=== PATIENT | female | born 1955 | race Caucasian/White ===

== ENCOUNTER 2020-05-01 17:28 | Outpatient (CLI) | payer BC, SELFPAY ==
--- NOTE | ~2020-05-01 | MM_ITS ---
EXAMINATION: MM screening [facility] w [facility] HISTORY: Screening TECHNIQUE: Craniocaudal and mediolateral oblique 3-D tomosynthesis images were obtained and synthetic 2-D images were generated. CAD analysis was submitted and interpreted. COMPARISON: Comparison to multiple prior studies sequentially, with oldest reviewed study dated 06/03. BREAST PARENCHYMAL COMPOSITION: There are scattered areas of fibroglandular density. FINDINGS: There is no evidence of suspicious mass, calcification, or architectural distortion to sugg est malignancy in either breast. There has been no suspicious interval change. IMPRESSION: 1. No mammographic evidence of malignancy. 2. Recommend routine screening mammography in one year. BI-RADS Category 1: Negative Reviewed, dictated and finalized at location A. [facility] [employer]
== END 2020-05-01 17:29 | disposition home or self-care (01) ==
LOC: ANHIMG 17:30
PROVIDERS: PCP Family Medicine; Visit Provider Obstetrics & Gynecology Gynecology
DX: Z12.31 Encounter for screening mammogram for malignant neoplasm of breast (principal)
CPT/HCPCS: 77063; 77067

== ENCOUNTER 2020-08-29 17:11 | Outpatient (CLI) | payer BC, SELFPAY | END 2020-08-29 17:12 | disposition home or self-care (01) | LOC: ANHCOVIDVC 17:11 | PROVIDERS: PCP Family Medicine | DX: Z23 Encounter for immunization (principal) | CPT/HCPCS: 0001A; 91300 ==

== ENCOUNTER → 2020-09-13 06:43 | Outpatient (CLI) | payer BC, SELFPAY ==
[2020-09-13 16:56] LABS: SARS-CoV-2 RNA PCR Positive
== END ==
PROVIDERS: PCP Family Medicine; Visit Provider Family Medicine
DX: U07.1 COVID-19 (principal); J20.9 Acute bronchitis, unspecified
CPT/HCPCS: C9803; U0003; U0005

== ENCOUNTER 2021-07-02 17:30 | Outpatient (CLI) | payer BC, SELFPAY ==
--- NOTE | ~2021-07-02 | MM_ITS ---
EXAMINATION: MM screening [facility] w nas HISTORY: Screening mammogram TECHNIQUE: Craniocaudal and mediolateral oblique 3-D tomosynthesis images were obtained and synthetic 2-D images were generated. CAD analysis was submitted and interpreted. COMPARISON: 05/01/2020, 05/06/2019, 03/18/2019 BREAST PARENCHYMAL COMPOSITION: There are scattered areas of fibroglandular density. FINDINGS: There is no evidence of suspicious mass, calcification, or architectural distortion to sugg est malignancy in either breast. There has been no suspicious interval change. IMPRESSION: 1. No mammographic evidence of malignancy. 2. Recommend routine screening mammography in one year. BI-RADS Category 1: Negative Reviewed, dictated and finalized at location A. [employer]
== END 2021-07-02 17:31 | disposition home or self-care (01) ==
LOC: ANHIMG 17:32
PROVIDERS: PCP Family Medicine; Visit Provider Obstetrics & Gynecology Gynecology
DX: Z12.31 Encounter for screening mammogram for malignant neoplasm of breast (principal)
CPT/HCPCS: 77063; 77067

== ENCOUNTER 2022-02-08 09:37 | Outpatient (CLI) | payer BC, SELFPAY ==
--- NOTE | ~2022-02-08 | DEXA_ITS ---
Bone Density Report Name: NICOLASA TOVAR Age: 66 Sex: Female Ethnicity: White Date of : 1955 Indication: postmenopausal; screening for osteoporosis; hysterectomy; Referring Provider: RADHA WATSON Study: Bone densitometry was performed. Exam Date: February 08, 2022 Accession number: [id number] Bone Density: Region BMD T-score Z-score Classification AP Spine(L1-L4) 1.046 0.0 1.7 Normal Femoral Neck (Left) 0.530 -2.9 -1.4 Osteoporosis Total Hip (Left) 0.739 -1.7 -0.5 Osteopenia Femoral Neck (Right) 0.558 -2.6 -1.2 Osteoporosis Total Hip (Right) 0.734 -1.7 -0.5 Osteopenia Total Hip Mean 0.737 -1.7 -0.5 Osteopenia World Health Organization criteria for BMD impression classify patients as: Normal (T-score at or above -1.0), Osteopenia (T-score between -1.0 and -2.5), or Osteoporosis (T-score at or below -2.5). 10-year Fracture Risk: FRAX not reported because: Some T-score for Spine Total or Hip Total or Femoral Neck at or below -2.5 Treated for osteoporosis Clinical Information Provided by Patient: Is being treated for osteoporosis Has used the following medications: Vitamin D Has the following medical conditions: Hysterectomy Patient maximum height was 62 Menopause Age: 47 No regular weight bearing exercise Drinks caffeinated beverages Onset of menses at age 15 Number of children 2 Impression: The patient has osteoporosis, based on the Left Femoral Neck T-score. Discussion: It is important to ask patients whether they are taking their medications and to encourage continued and appropriate compliance with their osteoporosis therapies to reduce fracture risk. It is also important to review their risk factors and encourage appropriate calcium and vitamin D intakes, exercise, fall prevention and other lifestyle measures. Follow-Up: Consider a repeat BMD and Vertebral Fracture Assessment (VFA) exam in 2 years or sooner if medically necessary, to reassess this patient's status. Reported by: [facility] on 02/08/2022 9:54:00 AM. Reviewed, dictated and finalized at location ARolando ROBERTSON
== END 2022-02-08 09:38 | disposition home or self-care (01) ==
PROVIDERS: PCP Family Medicine; Visit Provider Nurse Practitioner Family
DX: Z78.0 Asymptomatic menopausal state (principal); M81.0 Age-related osteoporosis without current pathological fracture
CPT/HCPCS: 77080

== ENCOUNTER 2022-06-21 06:39 | Outpatient (CLI) | payer BC, SELFPAY ==
[2022-06-21 07:47] LABS: Basophils Absolute Auto 0.1 K/mm3 (0.0-0.1); Basophils Percent Auto 1.3 % (0.2-1.2); Eosinophils Absolute Auto 0.4 K/mm3 (0-0.3); Eosinophils Percent Auto 5.2 % (0-4.4); Hematocrit 42.7 % (37.0-47.0); Hemoglobin 14.7 g/dL (12.0-15.0); Immature Granulocyte Absolute 0.04 K/mm3 (0.00-0.031); Immature Granulocyte Percent A 0.6 % (0-0.5); Lymphocytes Absolute Auto 2.63 K/mm3 (0.9-3.2); Lymphocytes Percent Auto 36.9 % (18.3-44.2); Mean Corpuscular HGB Conc 34.4 g/dl (32-36); Mean Corpuscular Volume 84.2 fl (80-100); Mean Platelet Volume 9.5 fl (7.4-10.4); Monocytes Absolute Auto 0.5 K/mm3 (0.1-0.6); Monocytes Percent Auto 6.5 % (2.6-8.5); Neutrophils Absolute Auto 3.5 K/mm3 (1.3-6.7); Neutrophils Percent Auto 49.5 % (45.5-73.1); Platelet Count Result 303 k/mm3 (150-375); Red Blood Count 5.07 M/mm3 (4.2-5.4); White Blood Count 7.1 K/mm3 (4.5-10.0)
[2022-06-21 08:12] LABS: Alanine Aminotransferase 32 U/L (6-35); Alkaline Phosphatase 108 U/L (38-126); Anion Gap 7 mmol/L (8-16); Aspartate Amino Transferase 31 U/L (14-36); Bilirubin,Total 0.6 mg/dL (0.2-1.3); Blood Urea Nitrogen 11 mg/dL (7-17); Carbon Dioxide 27 mmol/L (22-30); Chloride 108 mmol/L (98-107); Cholesterol 199 mg/dL (0-200); Estimated Glomerular Filt Rate > 60; Glucose 100 mg/dL (65-110); HDL Direct 47 mg/dL; Magnesium 2.3 mg/dL (1.6-2.3); Sodium 142 mmol/L (137-145); Triglycerides 87 mg/dL (<150)
[2022-06-21 08:23] LABS: LDL Cholesterol Direct 111 mg/dL
[2022-06-21 08:47] LABS: Appearance Urine Clear (Clear); Bilirubin Urine Negative (Negative); Blood Urine Negative (Negative); Color Urine Yellow (Yellow); Glucose Urine UA Negative (Negative); Ketones Urine Negative (Negative); Leukocyte Esterase Ur Negative LEU/UL (NEGATIVE); Nitrate Urine Negative (Negative); Protein Urine Negative (Negative); Specific Grav Ur 1.015 (1.001-1.035); Urobilinogen Urine 0.2 mg/dL (<2.0); pH Urine 7.5 (5.0-9.0)
[2022-06-21 09:20] LABS: Add Urine Microscopic? NO
[2022-06-21 09:24] LABS: Folic Acid > 20.0 ng/mL (2.76->20)
[2022-06-26 11:23] LABS: Vitamin D 1,25 (OH)2 Total 54 pg/mL (18-72); Vitamin D2 1,25 (OH)2 <8 pg/mL; Vitamin D3 1,25 (OH)2 54 pg/mL
== END 2022-06-21 06:40 | disposition home or self-care (01) ==
PROVIDERS: PCP Family Medicine; Visit Provider Family Medicine
DX: Z00.00 Encounter for general adult medical examination without abnormal findings (principal); E78.2 Mixed hyperlipidemia; I47.1 Supraventricular tachycardia; D51.9 Vitamin B12 deficiency anemia, unspecified; E55.9 Vitamin D deficiency, unspecified; I10 Essential (primary) hypertension
CPT/HCPCS: 36415; 80053; 80061; 81003; 82607; 82652; 82746; 83735; 84443; 85025

== ENCOUNTER 2022-12-13 08:57 | Outpatient (CLI) | payer OTHER, SELFPAY ==
--- NOTE | ~2022-12-13 | MM_ITS ---
EXAMINATION: MM screening [facility] w nas HISTORY: Screening mammogram TECHNIQUE: Craniocaudal and mediolateral oblique 3-D tomosynthesis images were obtained and synthetic 2-D images were generated. CAD analysis was submitted and interpreted. COMPARISON: July 02, 2021, May 01, 2020 bilateral screening mammogram examinations BREAST PARENCHYMAL COMPOSITION: There are scattered areas of fibroglandular density. FINDINGS: There is no evidence of suspicious mass, calcification, or architectural distortion to sugg est malignancy in either breast. There has been no suspicious interval change. IMPRESSION: 1. No mammographic evidence of malignancy. 2. Recommend routine screening mammography in one year. BI-RADS Category 1: Negative Reviewed, dictated and finalized at location A.
== END 2022-12-13 08:58 | disposition home or self-care (01) ==
PROVIDERS: PCP Family Medicine; Visit Provider Nurse Practitioner
DX: Z12.31 Encounter for screening mammogram for malignant neoplasm of breast (principal)
CPT/HCPCS: 77063; 77067

== ENCOUNTER 2023-01-05 00:58 | Day surgery (SDC) | payer OTHER, SELFPAY ==
[2022-12-23 13:10] VITALS: BMI 34.7
[2023-01-05 06:15] VITALS: BP 142/92; PULSE 79; RESP 16; TEMP 35.8; O2SAT 98
[2023-01-05] MEDS: LACTATED RINGERS 1,000 ML 150 ML IV CONT (06:18)
--- NOTE | 2023-01-05 07:21 | PM.HPGS ---
History of Present Illness History of Present Illness Consent: Risks, benefits, and alternatives have been discussed and questions answered. Patient agrees to proceed with procedure. Chief complaint: neoplasm screening Narrative: Elham Brannon is a 67 year old female Stents for screening colonoscopy. Patient has a distant history of adenomatous colon polyp removed from the colon. Patient reports her current weight appetite and bowel movements are normal. She denies abdominal pain. She has had no bleeding. Patient presents today for neoplasia screening. Review of Systems Review of Systems: Review of systems noncontributory. [facility] Past Medical History Medical History (Updated 01/05/23 @ 07:22 by Colton Henderson MD) Acute bronchitis Acute non-recurrent maxillary sinusitis Anxiety BMI 36.0-36.9,adult Breast cancer screening by mammogram normal mammogram 12/13/2022. COVID (~05/21/22) Second episode, did not take Paxlovid. COVID-19 (09/08/20) COVID + 05/23/22 COVID antibody test markedly positive at greater than 150 on 07/01/2021 Encounter for wellness examination in adult Exposure to COVID-19 virus Muscle spasm Obesity (BMI 30-39.9) Vitamin B12 deficiency anemia (07/01/21) Level normal at 814 with folic acid greater than 20 with hemoglobin 14.7 on 06/21/2022. Vitamin D deficiency, unspecified Level normal at 39 on 07/01/2021. Family History Family History (Updated 09/21/18 @ 08:17 by DOCTOR UNKNOWN) Father Cerebrovascular accident Grandparent Cerebrovascular accident Family history of Parkinson's disease Sibling Family history of lung cancer, Onset Age: 38 Family history of congestive heart failure, Onset Age: 53 Mother Family history of congestive heart failure, Onset Age: 53 Social History Social History (Updated 07/14/22 @ 16:00 by Dana Porter MA) Years smoked: 10 Smoking status: Former smoker Tobacco type: cigarettes Substance use: never Substance use type: does not use Lack of Transportation: No Lack of Food: Never True Current Housing: I Have Housing Concerned About Future Housing: No Difficulty Paying Gas/Electric Bills: No Difficulty Paying for Meds: No Currently Unemployed: No Education: High School Diploma/GED Difficulty w/ Childcare or Family Care: No Living arrangements: other Additional living arrangements comments: With sp Meds Home Medications and Allergies Home Medications Medication Instructions Recorded Confirmed Type fluticasone propionate 50 1 spray intranasal BID PRN 06/13/19 01/05/23 History mcg/actuation nasal Allergic Symptoms spray,suspension (Flonase Allergy Relief) cholecalciferol (vitamin D3) 125 5,000 unit PO DAILY 07/11/21 01/05/23 History mcg (5,000 unit) capsule cyanocobalamin (vitamin B-12) 1,000 mcg PO DAILY 07/11/21 01/05/23 History 1,000 mcg tablet magnesium oxide 250 mg PO BID PRN Constipation 01/08/22 01/05/23 History potassium chloride 10 mEq 10 meq PO DAILY 01/08/22 01/05/23 History capsule,extended release metoprolol succinate 50 mg 50 mg PO BID #60 tabs 05/23/22 01/05/23 Rx tablet,extended release 24 hr hydrochlorothiazide 12.5 mg capsule 12.5 mg PO DAILY #90 caps 06/18/22 01/05/23 Rx apixaban 5 mg tablet (Eliquis) 5 mg PO BID PRN Afib 07/14/22 01/05/23 History Allergies Allergy/AdvReac Type Severity Reaction Status Date / Time cefdinir Allergy Unknown Swelling Verified 01/05/23 06:10 Vital Signs Vital Signs - 24 hr 01/05/23 06:15 Temperature 96.5 F L Pulse Rate 79 Respiratory Rate 16 Blood Pressure 142/92 H Pulse Oximetry 98 Oxygen Delivery Room Air Exam Narrative: Physical exam reveals patient to be alert. Vital signs stable. HEENT exam is unremarkable. Patient is anicteric. Lungs are clear to auscultation and percussion. Heart is without murmur or extra sounds. Abdomen bowel sounds are present soft
--- NOTE | 2023-01-05 07:27 | WPDANESEPPF ---
Anes - Initial Pre Proc Eval Procedure: Operation Date: 01/05/23 07:30 Proposed Procedures p Screening Colonoscopy - Colton Henderson MD Date/Time: 01/05/23 07:27 Surgeon: Colton Henderson MD Pre Op Diagnosis: neoplasm screening Patient Data Age: 67 Gender: F Height: 1.57 m Weight: 84.5 kg Last Vital Signs Temp 96.5 F L 01/05/23 06:15 Pulse 79 01/05/23 06:15 Resp 16 01/05/23 06:15 BP 142/92 H 01/05/23 06:15 Pulse Ox 98 01/05/23 06:15 O2 Del Method Room Air 01/05/23 06:15 Allergies Allergy/AdvReac Type Severity Reaction Status Date / Time cefdinir Allergy Unknown Swelling Verified 01/05/23 06:10 Home Medications Medication Instructions Recorded Confirmed Type fluticasone propionate 50 1 spray intranasal BID PRN 06/13/19 01/05/23 History mcg/actuation nasal Allergic Symptoms spray,suspension (Flonase Allergy Relief) cholecalciferol (vitamin D3) 125 5,000 unit PO DAILY 07/11/21 01/05/23 History mcg (5,000 unit) capsule cyanocobalamin (vitamin B-12) 1,000 mcg PO DAILY 07/11/21 01/05/23 History 1,000 mcg tablet magnesium oxide 250 mg PO BID PRN Constipation 01/08/22 01/05/23 History potassium chloride 10 mEq 10 meq PO DAILY 01/08/22 01/05/23 History capsule,extended release metoprolol succinate 50 mg 50 mg PO BID #60 tabs 05/23/22 01/05/23 Rx tablet,extended release 24 hr hydrochlorothiazide 12.5 mg capsule 12.5 mg PO DAILY #90 caps 06/18/22 01/05/23 Rx apixaban 5 mg tablet (Eliquis) 5 mg PO BID PRN Afib 07/14/22 01/05/23 History Patient hx anesthesia problems: none Family hx anesthesia problems: none Results Review: All pre-operative results and documents have been reviewed as part of the pre-operative evaluation. [facility] Past Medical History Medical History (Updated 01/05/23 @ 07:22 by Colton Henderson MD) Acute bronchitis Acute non-recurrent maxillary sinusitis Anxiety BMI 36.0-36.9,adult Breast cancer screening by mammogram normal mammogram 12/13/2022. COVID (~05/21/22) Second episode, did not take Paxlovid. COVID-19 (09/08/20) COVID + 05/23/22 COVID antibody test markedly positive at greater than 150 on 07/01/2021 Encounter for wellness examination in adult Exposure to COVID-19 virus Muscle spasm Obesity (BMI 30-39.9) Vitamin B12 deficiency anemia (07/01/21) Level normal at 814 with folic acid greater than 20 with hemoglobin 14.7 on 06/21/2022. Vitamin D deficiency, unspecified Level normal at 39 on 07/01/2021. Family History Family History (Updated 09/21/18 @ 08:17 by DOCTOR UNKNOWN) Father Cerebrovascular accident Grandparent Cerebrovascular accident Family history of Parkinson's disease Sibling Family history of lung cancer, Onset Age: 38 Family history of congestive heart failure, Onset Age: 53 Mother Family history of congestive heart failure, Onset Age: 53 Social History Social History (Updated 07/14/22 @ 16:00 by Dana Porter MA) Years smoked: 10 Smoking status: Former smoker Tobacco type: cigarettes Substance use: never Substance use type: does not use Lack of Transportation: No Lack of Food: Never True Current Housing: I Have Housing Concerned About Future Housing: No Difficulty Paying Gas/Electric Bills: No Difficulty Paying for Meds: No Currently Unemployed: No Education: High School Diploma/GED Difficulty w/ Childcare or Family Care: No Living arrangements: other Additional living arrangements comments: With hedy Garcia Final PreProcedure Day of Procedure 01/05/23 07:27 Patient weight: obese Heart: regular rate and rhythm Lungs: clear to auscultation Airway: Mallampati scale class II Neurological: alert and oriented ASA classification: III Anesthetic plan: proceed Anesthesia type and monitoring: general GIVS and standard monitoring Results Review: All pre-operative results and documents have been reviewed as part o
[2023-01-05] MEDS: SIMETHICONE ORAL SUSPENSION 20 MG/0.3 ML 30 ML BOTTLE 0.6 ML IRRIGATION (07:40)
[2023-01-05 07:50] VITALS: BP 138/73; PULSE 70; RESP 19; O2SAT 97
[2023-01-05 08:00] VITALS: BP 128/75; PULSE 64; RESP 23; O2SAT 98
[2023-01-05 08:10] VITALS: BP 122/68; PULSE 61; RESP 21; O2SAT 99
== END 2023-01-05 08:18 | disposition home or self-care (01) ==
PROVIDERS: PCP Family Medicine; Visit Provider Internal Medicine Gastroenterology
PROC: 0DJD8ZZ Inspection of Lower Intestinal Tract, Via Natural or Artificial Opening Endoscopic (ICD-10-PCS; CPT 45378; principal; 2023-01-05 07:30)
DX: Z12.11 Encounter for screening for malignant neoplasm of colon (principal); K63.5 Polyp of colon; K57.30 Diverticulosis of large intestine without perforation or abscess without bleeding; K64.8 Other hemorrhoids; F41.9 Anxiety disorder, unspecified; E53.8 Deficiency of other specified B group vitamins; E55.9 Vitamin D deficiency, unspecified; Z82.3 Family history of stroke; Z87.891 Personal history of nicotine dependence; Z79.01 Long term (current) use of anticoagulants; E66.9 Obesity, unspecified; Z68.34 Body mass index [BMI] 34.0-34.9, adult
CPT/HCPCS: 45380; 88305; J2704; J7120

== ENCOUNTER → 2023-03-26 09:34 | Outpatient (CLI) | payer OTHER, SELFPAY ==
--- NOTE | ~2023-03-26 | XR_ITS ---
EXAMINATION: XR chest 2V DATE: 03/26/2023 09:48 INDICATION: Chronic cough. TECHNIQUE: Frontal and lateral views of the chest were obtained on 3 radiographs. COMPARISON: Chest 2 views 02/11/2018, chest CT 02/11/2018 FINDINGS: Calcified pulmonary nodules are consistent with old granulomatous disease. No pleural effus ion or pneumothorax. The heart size is normal. IMPRESSION: 1. No acute cardiopulmonary disease. Reviewed, dictated and finalized at location E.
== END ==
PROVIDERS: PCP Family Medicine; Visit Provider Family Medicine
DX: R05.3 Chronic cough (principal)
CPT/HCPCS: 71046

== ENCOUNTER 2023-04-21 12:17 | Outpatient (CLI) | payer OTHER, SELFPAY ==
--- NOTE | 2023-04-21 16:20 | WPDPFTINT ---
PFT Procedure Performed PFT Procedure Performed Spirometry with Pre/Post Bronchodilator Plethysmography (Lung Vol) Diffusing Cap (DLCO) Flow Vol Loop PFT Interpretation This is a pulmonary function test with pre and post-bronchodilator spirometry, plethysmography and diffusing capacity. The test was performed and results interpreted in accordance with the 2019 and 2005 ATS/ERS Task Force guidelines respectively using the Global Lung Function Initiative-2012 reference equations. Patient demonstrated good effort and cooperation. Reproducibility criteria were met. The quality of the pre bronchodilator spirometry maneuver was Grade A and post bronchodilator spirometry maneuver was Grade A. Findings: Spirometry: The contour the inspiratory and expiratory flow tracing are normal. The pre bronchodilator FVC is 2.32 L, 83% predicted. The pre bronchodilator FEV1 is 1.86 L, 85% predicted. The pre bronchodilator FEV1: FVC ratio is 80%. The post bronchodilator FVC is 2.32 L, representing no change. The post bronchodilator FEV1 is 1.95 L, representing a 5% increase. The post bronchodilator FEV1: FVC ratio is 84%. Plethysmography: The total lung capacity is 3.54 L, 75% predicted. The functional residual capacity is 1.22 L, 46% predicted. The residual volume is 1.05 L, 53% predicted. Diffusing capacity: The diffusing capacity unadjusted for hemoglobin and carboxyhemoglobin is 13.4, 66% predicted. The diffusing capacity adjusted for alveolar volume is 3.92, 88% predicted. Impression: There is a mild restrictive ventilatory abnormality with a normal FEV1. The spirometry is normal without evidence of an obstructive abnormality. There is no significant improvement after inhaling a single dose of albuterol. The diffusing capacity unadjusted for hemoglobin and carboxyhemoglobin is mildly decreased and normalizes when adjusted for alveolar volume. There are no prior studies for comparison
== END 2023-04-21 12:18 | disposition home or self-care (01) ==
LOC: ANHPFT 12:18
PROVIDERS: PCP Family Medicine; Visit Provider Family Medicine
DX: R05.3 Chronic cough (principal); R94.2 Abnormal results of pulmonary function studies
CPT/HCPCS: 94060; 94726; 94729

== ENCOUNTER 2023-10-30 11:04 | Emergency (ER) | payer OTHER, SELFPAY ==
--- NOTE | ~2023-10-30 | XR_ITS ---
XR chest 2V 10/30/2023 12:12 Indication: Cough. Epigastric pain. Procedure: AP and lateral views of the chest Comparison: 08/17/2008 Findings: Shallow inspiration with crowding of the pulmonary vessels. No focal air space disease, pul monary edema, pleural effusion or suspected pneumothorax. There are scattered calcified granulomas in both lungs. No acute osseous abnormality. Impression: 1: No acute cardiopulmonary disease. Reviewed, dictated and finalized at location B. Impression: 1: No acute cardiopulmonary disease.
--- NOTE | ~2023-10-30 | CT_ITS ---
EXAMINATION: CT abdomen pelvis w con DATE: 10/30/2023 11:59 INDICATION: Right upper quadrant abdominal pain. TECHNIQUE: Computed tomography (CT) of the abdomen and pelvis was performed with 100 mL Omnipaque 350 intravenous contrast. Automated exposure control and iterative reconstruction technique were employe d. The dose-length product was 955.70 mGy-cm. COMPARISON: None. FINDINGS: The visualized portions of the lung bases demonstrate mild atelectasis. Calcified pulmonary nodules are consistent with old granulomatous disease. No pleural effusion. The heart size is normal . No pericardial effusion. The liver and spleen are normal. There are gallstones in the gallbladder, which is distended. Gallbladder wall thickening is noted. There is fat stranding around the gallbladd er. The pancreas, adrenal glands, and kidneys are normal. There is diverticulosis of the colon withou t evidence of diverticulitis. There are no dilated loops of bowel. The appendix is normal. There is c alcified atherosclerosis of the aorta and many of the other arteries. There are no pathologically enl arged lymph nodes. There is trace perihepatic ascites. IMPRESSION: 1. Acute cholecystitis. Reviewed, dictated and finalized at location A. IMPRESSION: 1. Acute cholecystitis.
[2023-10-30 11:06] VITALS: BP 124/61; PULSE 67; RESP 18; TEMP 36.4; O2SAT 99
--- NOTE | 2023-10-30 11:26 | ED.ABDPAIN ---
HPI - Abdominal Pain General Chief Complaint: Abdominal Pain Stated Complaint: right abdominal pain Time Seen by Provider: 10/30/23 11:14 Source: patient Mode of arrival: ambulatory Limitations: no limitations History of Present Illness HPI narrative: Elham is a 67-year-old female patient presenting to the ER today with complaints of right upper quadrant abdominal pain with pain radiating into her shoulder that started yesterday. States that the pain did improve overnight however this morning the pain started back again. She currently rates her pain a 9/10. Does have associated nausea without vomiting or diarrhea. Last bowel movement was this morning and normal for the patient. She has reported some chills without fever body aches. States pain is worse with movement and breathing. Denies any chest pain associated. Related Data Home Medications Medication Instructions Recorded Confirmed fluticasone propionate 50 1 spray intranasal BID PRN 06/13/19 07/27/23 mcg/actuation nasal Allergic Symptoms spray,suspension (Flonase Allergy Relief) cholecalciferol (vitamin D3) 125 5,000 unit PO DAILY 07/11/21 07/27/23 mcg (5,000 unit) capsule cyanocobalamin (vitamin B-12) 1,000 mcg PO DAILY 07/11/21 07/27/23 1,000 mcg tablet potassium chloride 10 mEq 10 meq PO DAILY 01/08/22 07/27/23 capsule,extended release apixaban 5 mg tablet (Eliquis) 5 mg PO BID PRN Afib 07/14/22 07/27/23 cetirizine 10 mg tablet (Zyrtec) 10 mg PO DAILY PRN 03/26/23 07/27/23 Allergies Allergy/AdvReac Type Severity Reaction Status Date / Time cefdinir Allergy Unknown Swelling Verified 01/05/23 06:10 Review of Systems Review of Systems: Pertinent positives per HPI. Patient denies any fever, chills, rash, headache, visual changes, dizziness, cough, runny nose, sore throat, chest pain, palpitations, nausea, vomiting, diarrhea, constipation, or any urinary issues. [facility] Past Medical History Medical History (Updated 10/30/23 @ 13:22 by Shahbaz Hua APRN) Acute bronchitis Acute non-recurrent maxillary sinusitis Anxiety BMI 36.0-36.9,adult Breast cancer screening by mammogram normal mammogram 12/13/2022. Chronic cough (~01/2023) Chest x-ray 03/26/2023 was unremarkable with old granulomatous disease with calcified pulmonary nodules unchanged. PFT on 04/21/2023 with mild restrictive disease, no obstructive airway disease. COVID (~05/21/22) Second episode, did not take Paxlovid. COVID-19 (09/08/20) COVID + 05/23/22 COVID antibody test markedly positive at greater than 150 on 07/01/2021 Encounter for wellness examination in adult Exposure to COVID-19 virus History of colon polyps Muscle spasm Obesity (BMI 30-39.9) Vitamin B12 deficiency anemia (07/01/21) Level normal at 814 with folic acid greater than 20 with hemoglobin 14.7 on 06/21/2022. Level normal at 1010 with hemoglobin 15.4 on 07/25/2023. Vitamin D deficiency, unspecified Level normal at 39 on 07/01/2021. Family History Family History (Updated 09/21/18 @ 08:17 by DOCTOR UNKNOWN) Father Cerebrovascular accident Grandparent Cerebrovascular accident Family history of Parkinson's disease Sibling Family history of lung cancer, Onset Age: 38 Family history of congestive heart failure, Onset Age: 53 Mother Family history of congestive heart failure, Onset Age: 53 Social History Social History Years smoked: 10 Smoking status: Former smoker Tobacco type: cigarettes Alcohol intake: never Substance use: never Substance use type: does not use Lack of Transportation: No Lack of Food: Never True Current Housing: I Have Housing Concerned About Future Housing: No Difficulty Paying Gas/Electric Bills: No Difficulty Paying for Meds: No Currently Unemployed: No Education: High School Diploma/GED Difficulty w/ Childcare or Family Care: No Living arra
--- NOTE | 2023-10-30 11:28 | ECG_ITS ---
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 Measurements Intervals [place] Rate: 65 P: 33 WI: 155 QRS: 40 QRSD: 130 T: 7 QT: 419 QTc: 438 Interpretive Statements SINUS RHYTHM RIGHT BUNDLE BRANCH BLOCK [120+ ms QRS DURATION, UPRIGHT V1, 40+ ms S IN I/aVL/V4/V5/V6] ABNORMAL ECG No previous ECG available for comparison Electronically Signed On 10-31-2023 07:48:08 CDT by Tristin Rojas M.D.
[2023-10-30 11:29] LABS: Basophils Absolute Auto 0.1 K/mm3 (0.0-0.1); Basophils Percent Auto 0.4 % (0.2-1.2); Eosinophils Absolute Auto 0.1 K/mm3 (0-0.3); Eosinophils Percent Auto 0.4 % (0-4.4); Hemoglobin 16.1 g/dL (12.0-15.0); Immature Granulocyte Absolute 0.08 K/mm3 (0.00-0.031); Immature Granulocyte Percent A 0.5 % (0-0.5); Lymphocytes Absolute Auto 1.77 K/mm3 (0.9-3.2); Lymphocytes Percent Auto 10.7 % (18.3-44.2); Mean Corpuscular HGB Conc 33.5 g/dl (32-36); Mean Corpuscular Hemoglobin 28.8 pg (26-34); Mean Corpuscular Volume 85.9 fl (80-100); Mean Platelet Volume 9.1 fl (7.4-10.4); Monocytes Absolute Auto 0.9 K/mm3 (0.1-0.6); Monocytes Percent Auto 5.2 % (2.6-8.5); Neutrophils Absolute Auto 13.7 K/mm3 (1.3-6.7); Neutrophils Percent Auto 82.8 % (45.5-73.1); Platelet Count Result 369 k/mm3 (150-375); Red Blood Count 5.59 M/mm3 (4.2-5.4); Red Cell Distribution Width 12.9 % (11.5-14.5); White Blood Count 16.5 K/mm3 (4.5-10.0)
[2023-10-30] MEDS: ONDANSETRON INJ 4 MG/2 ML VIAL IV PUSH (11:34)
[2023-10-30] MEDS: SODIUM CHLORIDE 0.9% IV 1,000 ML 999 ML IV CONT (11:34)
[2023-10-30] MEDS: MORPHINE SULFATE (*CRX) 4 MG/ML INJ IV PUSH (11:34)
[2023-10-30 11:41] LABS: Alanine Aminotransferase 26 U/L (6-35); Albumin Level 4.5 g/dL (3.5-5.1); Alkaline Phosphatase 108 U/L (38-126); Anion Gap 4 mmol/L (4-12); Aspartate Amino Transferase 26 U/L (14-36); Bilirubin,Total 1.6 mg/dL (0.2-1.3); Blood Urea Nitrogen 15 mg/dL (7-17); Calcium 9.5 mg/dL (8.4-10.2); Carbon Dioxide 28 mmol/L (22-30); Chloride 105 mmol/L (98-107); Estimated CRCL calculation 69 ml/min; Estimated Glomerular Filt Rate > 60; Glucose 148 mg/dL (65-110); Lipase 51 U/L (23-300); Potassium 3.9 mmol/L (3.4-5.0); Sodium 137 mmol/L (137-145)
--- NOTE | 2023-10-30 11:52 | PC.NURSE ---
Pt taken to ct at this time
[2023-10-30 11:55] LABS: Appearance Urine Cloudy (Clear); Bacteria Urine Rare /hpf; Bilirubin Urine Negative (Negative); Blood Urine Negative (Negative); Color Urine Yellow (Yellow); Glucose Urine UA Negative (Negative); Ketones Urine 1+ mg/dL (Negative); Leukocyte Esterase Ur 1+ LEU/UL (Negative); Nitrate Urine Negative (Negative); Non Pathogenic Casts 0-2; Protein Urine Negative (Negative); RBC Urine 0-2 /hpf (0-2); Specific Grav Ur 1.023 (1.001-1.035); Squamous Epithelial Cell Urine Few /hpf (Few)
[2023-10-30 12:01] LABS: Add Urine Microscopic? YES
--- NOTE | 2023-10-30 12:09 | PC.NURSE ---
Pt returned to room 19 at this time
[2023-10-30 12:34] VITALS: PULSE 97; RESP 19; O2SAT 95
[2023-10-30 12:48] LABS: Troponin I < 0.012 ng/mL (0.000-0.034)
[2023-10-30 13:30] VITALS: BP 150/82; PULSE 94; RESP 18; O2SAT 96
--- NOTE | 2023-10-30 14:05 | PC.NURSE ---
No blood cultures needed per edp
[2023-10-30] MEDS: metroNIDAZOLE 500 MG/ISO 100ML 500 MG/100 ML BAG 100 MG IVPB (14:11)
[2023-10-30 14:38] VITALS: BP 130/72; PULSE 95; RESP 18; O2SAT 95
--- NOTE | 2023-10-30 14:49 | PM.CNGS ---
Assessment and Plan Assessment and plan (1) Acute cholecystitis: Code(s): K81.0 - Acute cholecystitis Status: Acute Assessment and Plan: Long discussion with patient and regarding treatment of acute cholecystitis with antibiotics and interval cholecystectomy, the patient would like to go with p.o. analgesia and antibiotics given her pain is much improved, the patient will follow up with me next week to set up interval cholecystectomy, stay on low-fat diet for now History of Present Illness Consult details Consult date: 10/30/23 Reason for consult: abdominal pain Requesting physician: Shahbaz Hua APRN Narrative: The patient is a 67-year-old female presenting to the emergency department complaining of severe epigastric, right upper quadrant abdominal pain. The patient reports she has symptoms for the last week or so that have progressively worsened. She reports associate anorexia, nausea, bloating. The patient also reports some difficulty deep breathing secondary to pain. The patient reports pain radiating to her right shoulder and back. The patient reports that she has had the symptoms in the past, however not this severe. Upon evaluation in the emergency room department, the patient reports that her pain is much improved after some narcotic pain medication. Review of Systems Review of Systems: All systems reviewed & are unremarkable except as noted in HPI and below PMFSH Past Medical History Medical History Acute bronchitis Acute non-recurrent maxillary sinusitis Anxiety BMI 36.0-36.9,adult Breast cancer screening by mammogram normal mammogram 12/13/2022. Chronic cough (~01/2023) Chest x-ray 03/26/2023 was unremarkable with old granulomatous disease with calcified pulmonary nodules unchanged. PFT on 04/21/2023 with mild restrictive disease, no obstructive airway disease. COVID (~05/21/22) Second episode, did not take Paxlovid. COVID-19 (09/08/20) COVID + 05/23/22 COVID antibody test markedly positive at greater than 150 on 07/01/2021 Encounter for wellness examination in adult Exposure to COVID-19 virus History of colon polyps Muscle spasm Obesity (BMI 30-39.9) Vitamin B12 deficiency anemia (07/01/21) Level normal at 814 with folic acid greater than 20 with hemoglobin 14.7 on 06/21/2022. Level normal at 1010 with hemoglobin 15.4 on 07/25/2023. Vitamin D deficiency, unspecified Level normal at 39 on 07/01/2021. Family History Family History Father Cerebrovascular accident Grandparent Cerebrovascular accident Family history of Parkinson's disease Sibling Family history of lung cancer, Onset Age: 38 Family history of congestive heart failure, Onset Age: 53 Mother Family history of congestive heart failure, Onset Age: 53 Social History Social History Years smoked: 10 Smoking status: Former smoker Tobacco type: cigarettes Alcohol intake: never Substance use: never Substance use type: does not use Lack of Transportation: No Lack of Food: Never True Current Housing: I Have Housing Concerned About Future Housing: No Difficulty Paying Gas/Electric Bills: No Difficulty Paying for Meds: No Currently Unemployed: No Education: High School Diploma/GED Difficulty w/ Childcare or Family Care: No Living arrangements: other Additional living arrangements comments: With sp Meds Home Medications and Allergies Home Medications Medication Instructions Recorded Confirmed Type fluticasone propionate 50 1 spray intranasal BID PRN 06/13/19 07/27/23 History mcg/actuation nasal Allergic Symptoms spray,suspension (Flonase Allergy Relief) cholecalciferol (vitamin D3) 125 5,000 unit PO DAILY 07/11/21 07/27/23 History mcg (5,000 unit) capsule cyano
[2023-10-30] MEDS: levoFLOXacin 750 MG/D5W 150 ML 750 MG/150 ML BAG 100 MG IVPB (15:13)
[2023-10-30 16:10] VITALS: BP 139/70; PULSE 93; RESP 20; O2SAT 98
== END 2023-10-30 16:54 | disposition home or self-care (01) ==
PROVIDERS: Emergency Medicine; Emergency Provider Nurse Practitioner Family; PCP Family Medicine
DX: K81.0 Acute cholecystitis (principal); N39.0 Urinary tract infection, site not specified
CPT/HCPCS: 36415; 71046; 74177; 80053; 81001; 83690; 84484; 85025; 87086; 87088; 93005; 96361; 96365; 96367; 96375; 99284; J1836; J1956; J2270; J2405; J7030; Q9967

== ENCOUNTER 2023-11-04 00:21 | Day surgery (SDC) | payer OTHER, SELFPAY ==
[2023-11-03 16:59] VITALS: BMI 34.4
--- NOTE | 2023-11-03 17:25 | PC.NURSE ---
Report to the Outpatient Waiting Room, entrance under the green pavilion located off [facility], at 1130 on 11-04-23. Planned Procedure Time: 1330. Time changes happen often and if your time is changed the preop area will call you the afternoon before. - You and your visitor will be asked to self-screen and do not enter if you have any COVID symptoms. - A mask is optional within the hospital at this time. Patients may have clear liquids (water, carbonated beverages, clear teas, apple juice) until 3 hours prior to surgery with a maximum of 20 ounces. 1030 - No food from midnight until time of surgery - Infants may have breast milk until 4 hours before surgery, formula 6 hours prior to surgery. - Children will be allowed to drink immediately following surgery. If applicable, please bring a bottle or sippy cup to assist with drinking. Juice, water, soda, and popsicles are readily available. For infants on formula, please bring formula the day of surgery. Pacifiers are allowed. Take the following medications with a SIP of water the morning of surgery: metoprolol, Ringoes if needed, zofran if needed DO NOT STOP ANY OF YOUR OTHER PRESCRIPTION MEDICATIONS PRIOR TO SURGERY ?EXCEPT THE FOLLOWING Medications to discontinue per physician: vitamins and supplements Date to take last dose: 11-03-23 Please no make-up, nail dominican, hairspray, perfume, deodorant, or body powder the day of surgery. No jewelry (including any body piercings) or valuables the day of surgery, leave them at home. Please take a shower or bath the night before, or the morning of, surgery with an antibacterial soap. Wear comfortable, loose fitting clothing. Children are encouraged to wear pajamas. - Jewelry must be removed prior to entering the operating room. Rings and piercings that are not removed may be cut off. - The hospital will not accept responsibility for valuables. - Please leave all valuables, including medications, at home the day of surgery. If you are going home after surgery, a licensed yard truck driver must drive you home. - NO public transportation without another adult if you receive anesthesia. - We recommend that an adult stay with you for 24 hours following discharge. - We also recommend that you do not drive, make important decision, drink alcoholic beverages, or take any drugs that were not prescribed by your health care provider for at least 24 hours after your discharge time. For Pediatric surgeries, we recommend two adults accompany the child home. Follow any additional instructions given to you from your surgeon. If you or anyone in your household have experienced Covid symptoms in the past week, please notify your surgeon or the nurse liaison at the phone number below for possible testing. Telephone instructions given to Rae Brannon and asked if any additional questions and then verbalized understanding. Patient advised to call surgeon office or pre surgery nurse liaison [phone] if any additional questions.
[2023-11-04] VITALS (9 sets, daily range): BP systolic 116–156; BP diastolic 73–95; PULSE 65–88; RESP 12–17; TEMP 36.2–36.6; O2SAT 96–100
--- NOTE | 2023-11-04 11:55 | WPDHPUPDATE1 ---
History and Physical Update Update Date/Time: 11/04/23 11:55 History and Physical has been reviewed, including an updated exam of the patient. There are NO changes in the patient's condition. Risks, benefits, and alternatives have been discussed and questions answered. Patient agrees to proceed with procedure.
[2023-11-04] MEDS: LACTATED RINGERS 1,000 ML 30 ML IV CONT ×2 (12:00→14:42)
[2023-11-04] MEDS: KETOROLAC 15 MG/ML VIAL (*BKC) IV PUSH (12:45)
[2023-11-04] MEDS: ACETAMINOPHEN 500 MG TABLET 1000 MG PO (12:45)
[2023-11-04 12:52] LABS: Amylase 61 U/L (30-110)
--- NOTE | 2023-11-04 13:14 | WPDANESEPPF ---
Anes - Initial Pre Proc Eval Procedure: Operation Date: 11/04/23 13:30 Proposed Procedures p Laparoscopic Cholecystectomy - Sabra Penny MD Date/Time: 11/04/23 13:14 Surgeon: Sabra Penny MD Pre Op Diagnosis: acute cholecystitis Patient Data Age: 67 Gender: F Height: 1.57 m Weight: 85.28 kg Allergies Allergy/AdvReac Type Severity Reaction Status Date / Time cefdinir Allergy Intermediate Hives Verified 11/03/23 16:50 Home Medications Medication Instructions Recorded Confirmed Type fluticasone propionate 50 1 spray intranasal BID PRN 06/13/19 11/04/23 History mcg/actuation nasal Allergic Symptoms spray,suspension (Flonase Allergy Relief) cholecalciferol (vitamin D3) 125 5,000 unit PO DAILY 07/11/21 11/04/23 History mcg (5,000 unit) capsule cyanocobalamin (vitamin B-12) 1,000 mcg PO DAILY 07/11/21 11/04/23 History 1,000 mcg tablet potassium chloride 10 mEq 10 meq PO DAILY 01/08/22 11/04/23 History capsule,extended release albuterol sulfate 90 mcg/actuation 2 inh inhalation QID PRN shortness 03/26/23 11/04/23 Rx aerosol inhaler (Ventolin HFA) of breath or wheezing #8.5 grams cetirizine 10 mg tablet (Zyrtec) 10 mg PO DAILY PRN seasonal 03/26/23 11/04/23 History allergies hydrochlorothiazide 12.5 mg capsule 12.5 mg PO DAILY #90 caps 05/06/23 11/04/23 Rx metoprolol succinate 50 mg 50 mg PO BID #60 tabs 09/01/23 11/04/23 Rx tablet,extended release 24 hr hydrocodone 7.5 mg-acetaminophen 1 tablet PO Q6H PRN pain 3 days 10/30/23 11/04/23 Rx 325 mg tablet #10 tabs levofloxacin 750 mg tablet 750 mg PO DAILY 7 days #7 tabs 10/30/23 11/04/23 Rx metronidazole 500 mg tablet 500 mg PO Q8H 7 days #21 tabs 10/30/23 11/04/23 Rx ondansetron 4 mg disintegrating 4 mg PO Q6H PRN nausea and 10/30/23 11/04/23 Rx tablet vomiting 3 days #12 tabs hyoscyamine sulfate 0.125 mg 0.125 mg sublingual QID PRN 11/03/23 11/03/23 History sublingual tablet (Levsin/SL) Abdominal Pain Laboratory Tests 11/04/23 12:33 Amylase 61 U/L (30-110) Patient hx anesthesia problems: none Family hx anesthesia problems: none Results Review: All pre-operative results and documents have been reviewed as part of the pre-operative evaluation. [facility] Past Medical History Medical History Acute bronchitis Acute non-recurrent maxillary sinusitis Anxiety BMI 36.0-36.9,adult Breast cancer screening by mammogram normal mammogram 12/13/2022. Chronic cough (~01/2023) Chest x-ray 03/26/2023 was unremarkable with old granulomatous disease with calcified pulmonary nodules unchanged. PFT on 04/21/2023 with mild restrictive disease, no obstructive airway disease. COVID (~05/21/22) Second episode, did not take Paxlovid. COVID-19 (09/08/20) COVID + 05/23/22 COVID antibody test markedly positive at greater than 150 on 07/01/2021 Encounter for wellness examination in adult Exposure to COVID-19 virus History of colon polyps Muscle spasm Obesity (BMI 30-39.9) Vitamin B12 deficiency anemia (07/01/21) Level normal at 814 with folic acid greater than 20 with hemoglobin 14.7 on 06/21/2022. Level normal at 1010 with hemoglobin 15.4 on 07/25/2023. Vitamin D deficiency, unspecified Level normal at 39 on 07/01/2021. Family History Family History Father Cerebrovascular accident Grandparent Cerebrovascular accident Family history of Parkinson's disease Sibling Family history of lung cancer, Onset Age: 38 Family history of congestive heart failure, Onset Age: 53 Mother Family history of congestive heart failure, Onset Age: 53 Social History Social History Smoking packs per day: 0.75 Smoking cigarettes per day: 15.0 Years smoked: 12 Smoking pack-years: 9.00 Smoking status: Linoe
[2023-11-04] MEDS: CLINDAMYCIN 900 MG/D5W 50 ML 900 MG/50 ML PIGGYBACK 50 MG IVPB (13:45)
[2023-11-04] MEDS: BUPIVACAINE/EPINEPHRINE 0.5% 50 ML VIAL 30 ML INFILTRATE (13:46)
--- NOTE | 2023-11-04 14:37 | W.PM.PROC2 ---
Procedure Note - Detailed Date of Procedure 11/04/23 Pre-op Diagnosis acute cholecystitis, cholelithiasis Post-op Diagnosis Same Procedure Performed laparoscopic cholecystectomy, extensive lysis of adhesions Surgeon Sabra Penny MD Anesthesia General and Local Indications 67-year-old female that initially presented to the emergency department with acute cholecystitis, cholelithiasis. Patient has now been set up for interval cholecystectomy. Findings Acute suppurative cholecystitis with impacted gallstones at the neck of the gallbladder Description of Procedure The patient was taken to the operating room placed in the supine position. After adequate induction of general anesthesia, the patient was prepped and draped in normal sterile fashion. A time-out was then performed to verify the patient's identity as well as the procedure being performed. I then made a 5 mm incision in the infraumbilical region. Through this, a Veress needle was placed into the peritoneal cavity and CO2 gas was then insufflated. After adequate pneumoperitoneum was achieved, the Veress needle was removed and a 5 mm optiview trocar was placed through this incision under direct visualization. I then placed the laparoscope through this trocar site and under direct visualization placed a further 12 mm subxiphoid port as well as 2 additional 5 mm ports in the right upper abdomen. A large inflammatory mass was noted in the right upper quadrant. Using very careful blunt and sharp dissection with the Bovie cautery, I was able to slowly dissect the omentum off this area. The liver and the stomach were also noted to be attached to this area. Once I was able to completely free up the structures, the gallbladder was identified. The gallbladder was noted to be severely inflamed, distended, and full of gallstones. Given the amount of distention and inflammation, the gallbladder was decompressed. At this point it was noted that the patient had acute suppurative cholecystitis. Once decompressed, I was able to place a grasper at the dome of the gallbladder and this was retracted anterior and cephalad up over the liver. A 2nd retractor was then placed at the infundibulum and retracted laterally, this allowed visualization of the triangle of Calot. I then was able to visualize the cystic duct in its entirety from its proximal insertion into the gallbladder, to its distal junction with the common hepatic/common bile duct junction. At this point, I carefully skeletonized the proximal cystic duct with the [place] dissector. I then clipped and transected the proximal cystic duct. Next I visualized the cystic artery. Again the artery was skeletonized, clipped, and transected. I then used the Bovie cautery to take down the peritoneal attachments of the gallbladder off the liver bed. This was difficult given the amount of inflammation in the posterior space. Once the gallbladder specimen was completely detached, an endo-pouch was placed through the 12 mm port site. I then placed the gallbladder specimen into the Endo pouch and removed the endo-pouch from the 12 mm port site. Of note, the 12 mm site had to be slightly extended to allow extraction of the gallbladder. The specimen will now be sent to pathology for further review. I then copiously irrigated the right upper quadrant. Some mild oozing was noted in the liver bed and this was controlled with the bovie cautery. Hemostasis was noted in the liver bed, the clips were noted to be in good position on both the cystic duct stump and the cystic artery stump. No other pathology was noted in the right upper quadrant. I then moved the laparoscope to the subxiphoid port. No iatrogenic injury or other pathology was noted in the lower abdomen. I then closed the 12 mm trocar site under direct visualization using the Moe cone and 0 Vicryl suture. At this point, the abdomen was desufflated and all ports removed. All port sites were then closed w
== END 2023-11-04 16:33 | disposition home or self-care (01) ==
PROVIDERS: PCP Family Medicine; Visit Provider Surgery
PROC: 0FT44ZZ Resection of Gallbladder, Percutaneous Endoscopic Approach (ICD-10-PCS; CPT 47562; principal; 2023-11-04 13:30)
DX: K80.10 Calculus of gallbladder with chronic cholecystitis without obstruction (principal); E55.9 Vitamin D deficiency, unspecified; Z87.891 Personal history of nicotine dependence; E66.9 Obesity, unspecified; Z68.34 Body mass index [BMI] 34.0-34.9, adult; Z79.51 Long term (current) use of inhaled steroids
CPT/HCPCS: 47562; 36415; 82150; 88304; A9270; J0690; J1100; J1170; J1200; J1596; J1885; J2250; J2371; J2405; J2704; J3010; J7030; J7120

== ENCOUNTER 2024-04-11 14:56 | Outpatient (CLI) | payer OTHER, SELFPAY ==
--- NOTE | ~2024-04-11 | MM_ITS ---
EXAMINATION: MM screening sherman BI w nas HISTORY: Screening mammogram TECHNIQUE: Craniocaudal and mediolateral oblique 3-D tomosynthesis images were obtained and synthetic 2-D images were generated. CAD analysis was submitted and interpreted. COMPARISON: 12/13/2022, 07/02/2021, 05/01/2020 BREAST PARENCHYMAL COMPOSITION:Not Dense. The breasts are almost entirely fatty FINDINGS: No suspicious mass, calcification, or architectural distortion are identified in either chilango ast to suggest malignancy. There has been no suspicious interval change. IMPRESSION: No mammographic evidence of malignancy. Recommend routine screening mammography in one year. BI-RADS Category 1: Negative Reviewed, dictated and finalized at location . OLOGICAL TECHNICIAN
== END 2024-04-11 14:57 | disposition home or self-care (01) ==
LOC: ANHIMG 14:58
PROVIDERS: PCP Family Medicine; Visit Provider Obstetrics & Gynecology Gynecology
DX: Z12.31 Encounter for screening mammogram for malignant neoplasm of breast (principal)
CPT/HCPCS: 77063; 77067

== ENCOUNTER 2025-05-03 08:44 | Outpatient (CLI) | payer OTHER, SELFPAY ==
--- NOTE | ~2025-05-03 | MM_ITS ---
EXAMINATION: MM screening [facility]man BI w nas HISTORY: Screening. TECHNIQUE: Craniocaudal and mediolateral oblique 3-D tomosynthesis images were obtained and synthetic 2-D images were generated. CAD analysis was submitted and interpreted. COMPARISON: 2023, 2022, and 2021. BREAST PARENCHYMAL COMPOSITION: Not Dense: There are scattered areas of fibroglandular FINDINGS: No suspicious masses are seen. There are no suspicious calcifications. No unexplained architectural distortion is seen. There are no skin or nipple abnormalities identified. There is no adenopathy seen on the images submitted. IMPRESSION: No mammographic evidence to suggest malignancy is seen. The patient may return to screening mammography as per ACR guidelines. BI-RADS 1 - Negative. Reviewed, dictated and finalized at location C. WORK CARPENTER
== END 2025-05-03 08:45 | disposition home or self-care (01) ==
PROVIDERS: PCP Family Medicine; Visit Provider Nurse Practitioner
DX: Z12.31 Encounter for screening mammogram for malignant neoplasm of breast (principal)
CPT/HCPCS: 77063; 77067